=== PATIENT | male | born 1980 | race Caucasian/White ===

== ENCOUNTER 2016-10-24 17:50 | Emergency (ER) | payer OTHER ==
[~2016-10-24] VITALS: Ht 180.3 cm; Wt 84.1 kg
[2016-10-24] MEDS ORDERED: HYDROcodone/APAP 5/325 TABLET PO ONE (18:30)
[2016-10-24] MEDS ORDERED: INSULIN (18:32)
[2016-10-24] MEDS ORDERED: HYDROcodone/APAP 5/325 TABLET ONE (18:35)
[2016-10-24 20:34] VITALS: BP 159/78
== END 2016-10-24 20:54 | disposition home or self-care (01) ==
LOC: ED 20:48
DX: S42.112A Displaced fracture of body of scapula, left shoulder, initial encounter for closed fracture (principal); S42.142A Displaced fracture of glenoid cavity of scapula, left shoulder, initial encounter for closed fracture; W19.XXXA Unspecified fall, initial encounter; Y93.89 Activity, other specified; Y99.8 Other external cause status; Y92.89 Other specified places as the place of occurrence of the external cause
CPT/HCPCS: 29105